=== PATIENT | female | born 1935 | race Caucasian/White ===

== ENCOUNTER 2023-01-26 13:17 | Outpatient (OUT) | payer MEDICARE, SELFPAY ==
--- NOTE | 2023-01-26 15:22 | P.CN_ITS ---
Consult Note: HPI Data of Consult Patient: new to practice Consult date: 01/26/23 Requesting Physician: Mike Sheriff MD Primary Care Provider: Non-Staff Physician, Consult Narrative Reason for consult: Left shoulder, right hand pain Narrative: Pleasant 87yof who presents for evaluation. Worsening left shoulder, right hand pain. EMG of RUE shows possible carpal tunnel. Engages in provider directed home exercises >6 weeks. Continues in dry needling, which helps some. No imaging of cervical spine available. Utilizes topicals and OTC pain medications, which do not help much. Worked as hairdresser for many years. Denies adverse medication side effects. cc:: CC: Mike Sheriff MD Review of Systems ROS Status of ROS 10 or more systems reviewed and unremarkable except as noted in history and below Meds Home Medications and Allergies Home Medications Medication Instructions Recorded Confirmed Type amlodipine 2.5 mg tablet 2.5 mg PO DAILY 01/26/23 01/26/23 History amlodipine 5 mg tablet (Norvasc) 5 mg PO DAILY 01/26/23 01/26/23 History atorvastatin 20 mg tablet 20 mg PO DAILY 01/26/23 01/26/23 History exenatide microspheres 2 mg/0.85 2 mg subcut QWEEK 01/26/23 01/26/23 History mL subcutaneous auto-injector ([employer]) lisinopril 20 mg tablet 20 mg PO DAILY 01/26/23 01/26/23 History metformin 500 mg tablet 500 mg PO TID 01/26/23 01/26/23 History nebivolol 10 mg tablet 10 mg PO DAILY 01/26/23 01/26/23 History pregabalin 50 mg capsule (Lyrica) 50 mg PO TID 01/26/23 01/26/23 History Allergies Allergy/AdvReac Type Severity Reaction Status Date / Time erythromycin base Allergy Verified 01/26/23 14:35 milk Allergy Verified 01/26/23 14:35 Penicillins Allergy Verified 01/26/23 14:35 procaine [From Novocain] Allergy Verified 01/26/23 14:35 Sulfa (Sulfonamide Allergy Verified 01/26/23 14:35 Antibiotics) Exam Constitutional Common normals: no apparent distress, oriented x3 and healthy appearing Neck & C-Spine Other: Tender to palpation in cervical spine and paraspinal musculature. Pain elicited with flexion, extension, lateral rotation. Strength unremarkable in bilateral upper extremities. Sensation unremarkable except for dysesthesia in left C4, 5, right C6, 7 dermatomal distributions. Gait nonantalgic. Respiratory Common normals: normal respiratory effort Effort & inspection: able to speak in complete sentences Extremity Common normals: normal to inspection Neuro Common normals: oriented x3, CN's II-XII intact bilaterally and no focal motor deficits Psych Common normals: mental status grossly normal and cooperative Assessment and Plan Assessment and Plan (1) Cervical stenosis of spinal canal: (2) Cervical radiculopathy: Plan Pleasant 87yof who presents for evaluation. Failed conservative measures, as noted above. Given symptoms and lack of improvement, will have her undergo cervical MRI without contrast. She is in agreement. Medications reviewed. Will have her trial lyrica 50mg tid. She expressed understanding. Follow up after imaging.
== END 2023-01-26 13:18 | disposition home or self-care (01) ==
LOC: PM 13:18
PROVIDERS: Visit Provider Anesthesiology
DX: M54.12 Radiculopathy, cervical region (principal); M48.02 Spinal stenosis, cervical region
CPT/HCPCS: G0463

== ENCOUNTER 2023-02-12 09:32 | Outpatient (OUT) | payer MEDICARE, SELFPAY ==
--- NOTE | 2023-02-12 | MR_ITS ---
The [address] [address] Patient Name: EDI STAFFORD MRN: [id number] date: 1935 Sex: F Assigned Patient Location: MRI Current Patient Location: MRI Accession/Order Number: [id number] Exam Date: 02/12/2023 10:05 Report Date: 02/12/2023 11:40 At the request of: ARELIS BENTON Procedure: MR cervical spine wo con MR cervical spine wo con, 02/12/2023 10:05 AM EDT INDICATION: Cervical radiculopathy COMPARISON: There is no appropriate prior study for comparison. TECHNIQUE: Multiplanar, multisequential MRI images of cervical spine were obtained with without contrast. FINDINGS: There is normal physiologic cervical lordosis. The vertebral heights are relatively preserved. The cervicomedullary junction is unremarkable. No definite signal abnormality within the spinal cord is noted. There are mild disc osteophyte complex associated with uncovertebral joint arthrosis from C3 to T1. No significant neuroforaminal narrowing or canal stenosis at the level of C2-C3 is noted. At the level of C3-C4, there is no neuroforaminal narrowing and no canal stenosis. At the level of C4-C5, there is no neuroforaminal narrowing and mild canal stenosis. At the level of C5-C6, there is mild bilateral neuroforaminal narrowing and mild canal stenosis. At the level of C6-C7, there is no neuroforaminal narrowing and no canal stenosis. Level of C7-T1 is unremarkable. No definite muscular or ligamentous injury is noted. 5.4 mm nodule in the left lower pole of thyroid is noted. MR/MR cervical spine wo con IMPRESSION: Mild degenerative changes of the cervical spine in particular at C5-C6 with mild bilateral neuroforaminal narrowing and mild canal stenosis. Left thyroid lesion. Given the age of the patient and size of the nodule, no further follow-up is recommended per [employer]. Electronically authenticated by: ROMIE OLIVEIRA Date: 02/12/2023 11:40
== END 2023-02-12 09:33 | disposition home or self-care (01) ==
LOC: MRI 09:34
PROVIDERS: Visit Provider Anesthesiology
DX: M54.12 Radiculopathy, cervical region (principal)
CPT/HCPCS: 72141

== ENCOUNTER 2023-03-02 10:29 | Outpatient (OUT) | payer MEDICARE, SELFPAY ==
--- NOTE | 2023-03-02 11:57 | PM.CN ---
Consult Note: HPI Data of Consult Consult date: 03/02/23 Requesting Physician: Mike Sheriff MD Primary Care Provider: Non-Staff Physician, Consult Narrative Reason for consult: bilateral hand pain Narrative: 87yof who presents for assessment. continues to have bilateral hand pain. cervical imaging reviewed, which is significant for mild stenosis at c5-6. continues in provider directed home exercises. did not tolerate lyrica well, made her quite sleepy. cc:: CC: Mike Sheriff MD Review of Systems ROS Status of ROS 10 or more systems reviewed and unremarkable except as noted in history and below Meds Home Medications and Allergies Home Medications Medication Instructions Recorded Confirmed Type amlodipine 2.5 mg tablet 2.5 mg PO DAILY 01/26/23 01/26/23 History amlodipine 5 mg tablet (Norvasc) 5 mg PO DAILY 01/26/23 01/26/23 History atorvastatin 20 mg tablet 20 mg PO DAILY 01/26/23 01/26/23 History exenatide microspheres 2 mg/0.85 2 mg subcut QWEEK 01/26/23 01/26/23 History mL subcutaneous auto-injector ([employer]) lisinopril 20 mg tablet 20 mg PO DAILY 01/26/23 01/26/23 History metformin 500 mg tablet 500 mg PO TID 01/26/23 01/26/23 History nebivolol 10 mg tablet 10 mg PO DAILY 01/26/23 01/26/23 History pregabalin 50 mg capsule (Lyrica) 50 mg PO TID 01/26/23 01/26/23 History gabapentin 100 mg capsule 100 mg PO BID #60 caps 03/02/23 Rx Allergies Allergy/AdvReac Type Severity Reaction Status Date / Time erythromycin base Allergy Verified 01/26/23 14:35 milk Allergy Verified 01/26/23 14:35 Penicillins Allergy Verified 01/26/23 14:35 procaine [From Novocain] Allergy Verified 01/26/23 14:35 Sulfa (Sulfonamide Allergy Verified 01/26/23 14:35 Antibiotics) Exam Narrative Exam Narrative: Psych-alert and oriented x 3.? Attentive and appropriate, constitutionally normal, displays normal mood and affect per situation.? There are no obvious deficits in memory, reasoning, or intellect.? Skin-no obvious rashes, bruising, or erythema noted to the patient's area of pain.? Extremities-upper extremities are warm with minimal edema and palpable pulses. Cervical- tenderness to palpation noted in the cervical spine and paraspinal musculature.? Pain is elicited with flexion, extension, and lateral rotation of the cervical spine.? Range of motion is diminished due to pain. Facet loading maneuvers are negative.? Strength-unremarkable and within normal limits Sensory-no notable sensory deficits in the bilateral upper extremities to touch or pinprick with the exception to decreased sensation to the bilateral ventral hand. Coordination remains intact.? Gait remains non-antalgic. Assessment and Plan Assessment and Plan (1) Cervical stenosis of spinal canal: (2) Carpal tunnel syndrome on both sides: Plan 87yof who presents for assessment. continues to have burning throughout bilateral hands. was unable to tolerate lyrica well, so i will have her trial gabapentin 100mg bid. she is in agreement. imaging reviewed, as noted. do not think that there is significant cervical component to her symptoms. recommended that she follow up with orthopedic surgeon to discuss carpal tunnel injection or surgery. follow up in 6-8 weeks.
== END 2023-03-02 10:30 | disposition home or self-care (01) ==
PROVIDERS: Visit Provider Anesthesiology
DX: M48.02 Spinal stenosis, cervical region (principal); G56.03 Carpal tunnel syndrome, bilateral upper limbs; Z79.891 Long term (current) use of opiate analgesic; Z51.81 Encounter for therapeutic drug level monitoring
CPT/HCPCS: G0463